=== PATIENT | male | born 1995 | race Caucasian/White ===

== ENCOUNTER 2016-10-23 10:59 | Emergency (ER) | payer OTHER ==
[2016-10-23 11:27] VITALS: BP 142/77
--- NOTE | 2016-10-23 12:34 | ED ---
Lower Extremity - HPI Summary HPI Summary: 21 M w/ no PMH presents with left knee pain since yesterday. Someone jumped on his back and his left knee gave out. He says the area swelled afterwards. He has been able to ambulate afterwards. He denies any numbness or tingling. He has not injured this knee before. - History of Current Complaint Chief Complaint: EDExtremityLower Stated Complaint: RIGHT KNEE PAIN Time Seen by Provider: 10/23/16 12:20 Pain Intensity: 6 - Allergies/Home Medications Allergies/Adverse Reactions: Allergies Allergy/AdvReac Type Severity Reaction Status Date / Time Diphenhydramine Allergy Severe Swelling Verified 10/23/16 11:27 [From Benadryl] Of Face,Lips,& Throat PMH/Surg Hx/FS Hx/Imm Hx Endocrine/Hematology History: Denies: Hx Anticoagulant Therapy Cardiovascular History: Denies: Hx Hypertension Infectious Disease History: No Infectious Disease History: Denies: Traveled Outside the [place] in Last 30 Days - Family History Known Family History: Positive: Hypertension - Social History Occupation: Student Alcohol Use: None Substance Use Type: Reports: None, Other Substance Use Comment - Amount & Last Used: unknown Smoking Status (MU): Never Smoked Tobacco Review of Systems Negative: Fever Negative: Chest Pain Negative: Shortness Of Breath Positive: Myalgia - left knee pain All Other Systems Reviewed And Are Negative: Yes Physical Exam Triage Information Reviewed: Yes Vital Signs On Initial Exam: Initial Vitals Temp Pulse Resp BP Pulse Ox 97.9 F 75 16 142/77 100 10/23/16 11:23 10/23/16 11:23 10/23/16 11:23 10/23/16 11:23 10/23/16 11:23 Vital Signs Reviewed: Yes Appearance: Positive: Well-Appearing Skin: Positive: Warm, Dry Head/Face: Positive: Normal Head/Face Inspection Eyes: Positive: Normal ENT: Positive: Normal ENT inspection, Pharynx normal, TMs normal Respiratory/Lung Sounds: Positive: Clear to Auscultation, Breath Sounds Present Cardiovascular: Positive: Normal, RRR Musculoskeletal: Positive: Strength/ROM Intact - of left knee, Edema Left - knee , Other - good pulses, capillary refill <2 secs, neg anteroir and posteroir drawer, neg frye, pain greatest over lateral aspect of knee, patella midline Diagnostics - Vital Signs Vital Signs Temp Pulse Resp BP Pulse Ox 10/23/16 11:23 97.9 F 75 16 142/77 100 - Laboratory Lab Statement: Any lab studies that have been ordered have been reviewed, and results considered in the medical decision making process. - Radiology knee Xray Interpretation: Positive (See Comments) - IMPRESSION: THERE ARE SMALL FRACTURE FRAGMENTS NOTED ALONG THE MEDIAL FACET OF THE PATELLA SUGGESTIVE OF RECENT DISLOCATION OF THE PATELLA. CONSIDER MR IMAGING OF THE KNEE FOR FURTHER EVALUATION TO ASSESS FOR LIGAMENT AND CARTILAGE INJURY. Radiology Interpretation Completed By: Radiologist Lower Extremity Course/Dx - Course Course Of Treatment: 21 M presents with left knee pain s/p giving out yesterday. he said it swelled afterwards. He was able to ambulate afterwards, has edema present on exam, full ROM with pain, xray showed some fracture that could be previous dislocation will warant MRI in future, parents called and wanted an MRI now informed that stated that can not do MRI for knee pain out of ER and that is stable enough to follow up with ortho tomorrow as already has been walking around on it, placed in knee imbolizier and will have follow up with ortho, instructed that if wants films to go to medical records tomorrow, patient agrees with plan - Diagnoses Differential Diagnosis/HQI/PQRI: Positive: Dislocation, Fracture (Closed), Sprain, Strain, Other - ligament injury Provider Diagnoses: Left knee pain Discharge - Discharge Plan Condition: Good Disposition: HOME Patient Education Materials: Knee Sprain (ED) Referrals: [facility] FILOMENA Gomez [Primary Care Provider] - Sammy Rodriguez MD [Medical Doctor] - Additional Instructions: Call for an appointment to follow up with ortho Keep area in brace and use crutches to get around Ice, elevate Take Tylenol or ibuprofen for the pain every 6 hours Return to ED for any new or worsening symptoms
--- NOTE | 2016-10-23 12:40 | RAD ---
INDICATION: Right knee injury. TECHNIQUE: 4 views of the right knee were obtained. FINDINGS: The bones are in normal alignment. There is a small joint effusion present. There are small fracture fragments noted along the medial facet of the patella suggestive of recent lateral dislocation of the patella. IMPRESSION: THERE ARE SMALL FRACTURE FRAGMENTS NOTED ALONG THE MEDIAL FACET OF THE PATELLA SUGGESTIVE OF RECENT DISLOCATION OF THE PATELLA. CONSIDER MR IMAGING OF THE KNEE FOR FURTHER EVALUATION TO ASSESS FOR LIGAMENT AND CARTILAGE INJURY.
== END 2016-10-23 13:32 | disposition home or self-care (01) ==
LOC: ED 10:59
DX: S82.091A Other fracture of right patella, initial encounter for closed fracture (principal); M25.562 Pain in left knee; X50.9XXA Other and unspecified overexertion or strenuous movements or postures, initial encounter; Y93.9 Activity, unspecified; Y92.9 Unspecified place or not applicable; Y99.9 Unspecified external cause status
CPT/HCPCS: 99282